=== PATIENT | female | born 1950 | race African-American/Black ===

== ENCOUNTER 2020-10-13 23:18 | Emergency (ER) | payer OTHER ==
[~2020-10-13] VITALS: Ht 167.6 cm; Wt 108.9 kg
[~2020-10-13 23:18] MED LIST: NORCO 5-325 TA1 EACH PO; UNKNOWN BP MED
[2020-10-13 23:22] VITALS: BP 141/90
[2020-10-14 00:02] LABS: URINE BILIRUBIN NEGATIVE (Negative); URINE BLOOD 1+ (Negative); URINE CLARITY CLEAR; URINE COLOR YELLOW; URINE GLUCOSE-RANDOM* NEGATIVE (Negative); URINE KETONES NEGATIVE (Negative); URINE LEUKOCYTES-REFLEX NEGATIVE (Negative); URINE NITRITE-REFLEX NEGATIVE (Negative); URINE PROTEIN (DIPSTICK) 1+ (Negative); URINE SPECIFIC GRAVITY 1.025 (1.005-1.035)
[2020-10-14 00:32] LABS: CASTS None Seen /LPF (None Seen); CRYSTALS None Seen /LPF (None Seen); MUCUS 0-3 Light strn/LPF (None Seen); SQUAMOUS 0-3 Few /LPF (0-3); URINE RBC 3-10 Few /HPF (0-2); URINE WBC-REFLEX 0-5 Rare /HPF (0-5)
--- NOTE | 2020-10-14 11:13 | EKG ---
[place] [address] [email or web address] [place] [address] ELECTROCARDIOGRAM REPORT Name: FELIX WHITTINGTON Room #: [facility]#: [id number] Admission: 10/13/20 Attend Phys: Discharge: 10/14/20 Date of : 50 Report #: [id number] [facility] ED Test Date: 2020-10-14 Test Time: 00:24:43 Pat Name: FELIX WHITTINGTON Department: Room: Gender: F Data Programmer: [facility] : 1950 Requested By: Ale Wayne Order Number: [id number] MD: Lionel Pompa Measurements Intervals [place] Rate: 103 P: 78 [place]: 149 QRS: 35 QRSD: 73 T: 11 QT: 341 QTc: 447 Interpretive Statements Sinus tachycardia Low voltage, precordial leads Baseline wander in lead(s) I,II,aVR Compared to ECG 04/11/2009 18:07:43 Low QRS voltage now present Electronically Signed On 10-14-2020 11:13:05 FOURDRINIER MACHINE TENDER by Lionel Pompa [email or web address] <ELECTRONICALLY SIGNED> By: Lionel Pompa MD, [facility] 10/14/20 1113 0024 0024 Lionel Pompa MD, [facility] /EPI
== END 2020-10-14 00:37 | disposition left against medical advice (07) ==
LOC: ER 23:18
PROVIDERS: Emergency Medicine
DX: R00.0 Tachycardia, unspecified (principal); H93.8X1 Other specified disorders of right ear; R42 Dizziness and giddiness; E11.9 Type 2 diabetes mellitus without complications; I10 Essential (primary) hypertension; E78.00 Pure hypercholesterolemia, unspecified; F41.9 Anxiety disorder, unspecified; Z79.899 Other long term (current) drug therapy; Z88.0 Allergy status to penicillin

== ENCOUNTER 2021-06-06 20:46 | Emergency (ER) | payer OTHER ==
[~2021-06-06] VITALS: Ht 165.1 cm; Wt 104.3 kg
[2021-06-06 21:31] VITALS: BP 150/89
== END 2021-06-06 21:43 | disposition home or self-care (01) ==
LOC: ER 20:46
DX: U07.1 COVID-19 (principal); E11.9 Type 2 diabetes mellitus without complications; I10 Essential (primary) hypertension; F41.9 Anxiety disorder, unspecified; E78.00 Pure hypercholesterolemia, unspecified; Z88.0 Allergy status to penicillin

== ENCOUNTER 2021-07-20 14:22 | Emergency (ER) | payer OTHER ==
[~2021-07-20] VITALS: Ht 167.6 cm; Wt 108.9 kg
[2021-07-20] MEDS ORDERED: SPIRONOLACT/HCT1 TA1 PO (14:33)
[2021-07-20] MEDS ORDERED: LORAZEPAM 0.50.5 MG PO (14:34)
[2021-07-20] MEDS ORDERED: ROSUVASTATIN CA20 MG PO (14:34)
[2021-07-20] MEDS ORDERED: AMBIEN 5 MG TABL5 M1 PO (14:34)
[2021-07-20] MEDS ORDERED: CARVEDILOL6.25 M1 PO (14:35)
[2021-07-20 14:48] LABS: ABSOLUTE NEUTROPHILS 2.9 thou/uL (1.4-8.2); BASOPHILS 1.4 % (0.0-2.0); EOSINOPHILS 0.7 % (0.0-3.0); HEMATOCRIT 37.7 % (37.0-47.0); HEMOGLOBIN 12.2 gm/dL (12.0-15.0); LYMPHOCYTES 39.4 % (24.0-44.0); MCH 27.8 pg (26.0-34.0); MCHC 32.5 g/dL (28.0-37.0); MCV 85.5 fL (80.0-100.0); MONOCYTES 8.7 % (1.0-8.0); PLATELET COUNT 296 thou/uL (150-400); POLYS 49.8 % (36.0-66.0); RDW 16.4 % (10.5-14.5); WBC 5.8 thou/uL (4.0-11.0)
[2021-07-20 14:49] LABS: URINE BILIRUBIN NEGATIVE (Negative); URINE BLOOD NEGATIVE (Negative); URINE CLARITY CLEAR; URINE COLOR YELLOW; URINE GLUCOSE-RANDOM* NEGATIVE (Negative); URINE KETONES NEGATIVE (Negative); URINE LEUKOCYTES-REFLEX NEGATIVE (Negative); URINE NITRITE-REFLEX NEGATIVE (Negative); URINE PROTEIN (DIPSTICK) NEGATIVE (Negative); URINE UROBILINOGEN 0.2 E.U./dl (0.2-1.0)
[2021-07-20 15:05] LABS: CALCIUM 9.7 mg/dL (8.5-10.1); CREATININE 0.8 mg/dL (0.6-1.0); POTASSIUM 3.9 mmol/L (3.5-5.1)
[2021-07-20 15:14] LABS: ALBUMIN 3.7 g/dL (3.4-5.0); TOTAL BILIRUBIN 0.3 mg/dL (0.2-1.0); TOTAL PROTEIN 8.2 g/dL (6.4-8.2)
[2021-07-20] MEDS ORDERED: METFORMIN HCL500 M2 PO (15:34)
[2021-07-20 15:37] VITALS: BP 131/76
--- NOTE | 2021-07-21 15:14 | EKG ---
[address] [address] ELECTROCARDIOGRAM REPORT Name: FELIX WHITTINGTON Room #: [facility]#: [id number] Admission: 07/20/21 Attend Phys: Discharge: 07/20/21 Date of : 50 Report #: [id number] [facility] ED Test Date: 2021-07-20 Test Time: 14:27:19 Pat Name: FELIX WHITTINGTON Department: Room: Gender: F Guide: TRUDI : 1950 Requested By: Kevin Harden Order Number: [id number] MD: Lionel Pompa Measurements Intervals [place] Rate: 100 P: 39 [place]: 154 QRS: 19 QRSD: 120 T: -4 QT: 331 QTc: 427 Interpretive Statements Sinus tachycardia Atrial premature complex Nonspecific intraventricular conduction delay Borderline T abnormalities, inferior leads Compared to ECG 10/14/2020 00:24:43 Atrial premature complex(es) now present Intraventricular conduction delay now present T-wave abnormality now present Electronically Signed On 07-21-2021 15:14:10 CDT by Lionel Pompa [email or web address] <ELECTRONICALLY SIGNED> By: Lionel Pompa MD, FACC 07/21/21 1514 1427 1427 Lionel Pompa MD, [facility] /EPI
== END 2021-07-20 15:45 | disposition home or self-care (01) ==
LOC: ER 14:22
PROVIDERS: Emergency Medicine
DX: K21.9 Gastro-esophageal reflux disease without esophagitis (principal); Z20.822 Contact with and (suspected) exposure to COVID-19; R42 Dizziness and giddiness; E11.9 Type 2 diabetes mellitus without complications; I10 Essential (primary) hypertension; F41.9 Anxiety disorder, unspecified; E78.00 Pure hypercholesterolemia, unspecified; Z79.899 Other long term (current) drug therapy; Z88.0 Allergy status to penicillin

== ENCOUNTER 2021-07-22 22:25 | Emergency (ER) | payer OTHER ==
[~2021-07-22] VITALS: Ht 165.1 cm; Wt 108.9 kg
[~2021-07-22 22:25] MED LIST changes: +AMBIEN 5 MG TABL5 M1 PO; +CARVEDILOL6.25 M1 PO; +LORAZEPAM 0.50.5 MG PO; +METFORMIN HCL500 M2 PO; +ROSUVASTATIN CA20 MG PO; +SPIRONOLACT/HCT1 TA1 PO
[2021-07-22 23:27] LABS: URINE BILIRUBIN NEGATIVE (Negative); URINE BLOOD TRACE (Negative); URINE CLARITY CLEAR; URINE COLOR YELLOW; URINE GLUCOSE-RANDOM* NEGATIVE (Negative); URINE KETONES NEGATIVE (Negative); URINE LEUKOCYTES-REFLEX NEGATIVE (Negative); URINE NITRITE-REFLEX NEGATIVE (Negative); URINE PROTEIN (DIPSTICK) NEGATIVE (Negative)
[2021-07-22 23:51] LABS: ABSOLUTE NEUTROPHILS 2.6 thou/uL (1.4-8.2); BASOPHILS 0.7 % (0.0-2.0); EOSINOPHILS 1.1 % (0.0-3.0); HEMATOCRIT 35.6 % (37.0-47.0); HEMOGLOBIN 11.7 gm/dL (12.0-15.0); LYMPHOCYTES 39.1 % (24.0-44.0); MCHC 32.9 g/dL (28.0-37.0); MONOCYTES 10.2 % (1.0-8.0); PLATELET COUNT 264 thou/uL (150-400); POLYS 48.9 % (36.0-66.0); RBC 4.19 mil/uL (4.20-5.00); RDW 16.4 % (10.5-14.5); WBC 5.4 thou/uL (4.0-11.0)
[2021-07-22 23:57] LABS: CALCIUM 9.3 mg/dL (8.5-10.1); POTASSIUM 3.7 mmol/L (3.5-5.1)
[2021-07-23 00:06] LABS: ALBUMIN 3.4 g/dL (3.4-5.0); TOTAL BILIRUBIN 0.3 mg/dL (0.2-1.0); TOTAL PROTEIN 7.5 g/dL (6.4-8.2)
[2021-07-23 00:35] VITALS: BP 139/66
[2021-07-23] MEDS ORDERED: ATIVAN0.5 M1 PO (00:36)
--- NOTE | 2021-07-23 11:54 | EKG ---
[address] [place] [address] ELECTROCARDIOGRAM REPORT Name: FELIX WHITTINGTON Room #: [facility]#: [id number] Admission: 07/22/21 Attend Phys: Discharge: 07/23/21 Date of : 50 Report #: [id number] [facility] ED Test Date: 2021-07-23 Test Time: 00:17:23 Pat Name: FELIX WHITTINGTON Department: Room: Gender: F Press Operator Helper: : 1950 Requested By: Stephen Lam Order Number: [id number] MD: Lionel Pompa Measurements Intervals [place] Rate: 90 P: 74 [place]: 139 QRS: 24 QRSD: 83 T: -3 QT: 359 QTc: 440 Interpretive Statements Sinus arrhythmia Compared to ECG 07/20/2021 14:27:19 Sinus tachycardia no longer present Atrial premature complex(es) no longer present Intraventricular conduction delay no longer present T-wave abnormality no longer present Electronically Signed On 07-23-2021 11:54:31 CDT by Lionel Pompa [email or web address] <ELECTRONICALLY SIGNED> By: Lionel Pompa MD, [facility] 07/23/21 1154 0017 0017 Lionel Pompa MD, FAC /EPI
== END 2021-07-23 00:46 | disposition home or self-care (01) ==
LOC: ER 22:25
PROVIDERS: Emergency Medicine
DX: R00.2 Palpitations (principal); F41.9 Anxiety disorder, unspecified; R06.00 Dyspnea, unspecified; E78.00 Pure hypercholesterolemia, unspecified; E11.9 Type 2 diabetes mellitus without complications; I10 Essential (primary) hypertension; Z79.84 Long term (current) use of oral hypoglycemic drugs; Z79.891 Long term (current) use of opiate analgesic; Z79.899 Other long term (current) drug therapy; Z88.0 Allergy status to penicillin; Z86.16 Personal history of COVID-19

== ENCOUNTER 2021-07-27 15:08 | Emergency (ER) | payer OTHER ==
[~2021-07-27] VITALS: Ht 165.1 cm; Wt 108.9 kg
[~2021-07-27 15:08] MED LIST changes: +ATIVAN0.5 M1 PO
[2021-07-27 15:36] LABS: ABSOLUTE NEUTROPHILS 3.2 thou/uL (1.4-8.2); BASOPHILS 0.6 % (0.0-2.0); HEMATOCRIT 38.2 % (37.0-47.0); HEMOGLOBIN 12.2 gm/dL (12.0-15.0); LYMPHOCYTES 34.7 % (24.0-44.0); MCH 27.5 pg (26.0-34.0); MONOCYTES 8.4 % (1.0-8.0); PLATELET COUNT 268 thou/uL (150-400); POLYS 55.3 % (36.0-66.0); RBC 4.44 mil/uL (4.20-5.00); RDW 16.4 % (10.5-14.5); WBC 5.8 thou/uL (4.0-11.0)
[2021-07-27 15:44] LABS: CALCIUM 9.6 mg/dL (8.5-10.1); CREATININE 0.9 mg/dL (0.6-1.0); POTASSIUM 3.5 mmol/L (3.5-5.1)
[2021-07-27 15:57] LABS: ALBUMIN 3.6 g/dL (3.4-5.0); TOTAL BILIRUBIN 0.4 mg/dL (0.2-1.0)
[2021-07-27 17:50] VITALS: BP 174/93
--- NOTE | 2021-07-28 07:28 | EKG ---
[address] [place] [address] ELECTROCARDIOGRAM REPORT Name: FELIX WHITTINGTON Room #: [facility]#: [id number] Admission: 07/27/21 Attend Phys: Discharge: 07/27/21 Date of : 50 Report #: [id number] [facility] ED Test Date: 2021-07-27 Test Time: 15:22:00 Pat Name: FELIX WHITTINGTON Department: Room: Gender: F Government Affairs Director: JONATHAN : 1950 Requested By: Glynn Castillo Order Number: [id number] MD: Lionel Pompa Measurements Intervals [place] Rate: 93 P: 72 [place]: 133 QRS: 29 QRSD: 80 T: -10 QT: 352 QTc: 438 Interpretive Statements Sinus rhythm Borderline T abnormalities, inferior leads Compared to ECG 07/23/2021 00:17:23 T-wave abnormality now present Sinus arrhythmia no longer present Electronically Signed On 07-28-2021 7:27:49 CDT by Lionel Pompa [email or web address] <ELECTRONICALLY SIGNED> By: Lionel Pompa MD, [facility] 07/28/21 0727 21 21 Lionel Pompa MD, FACC /EPI
== END 2021-07-27 17:50 | disposition home or self-care (01) ==
LOC: ER 15:08
PROVIDERS: Emergency Medicine
DX: F41.9 Anxiety disorder, unspecified (principal); R00.2 Palpitations; E78.00 Pure hypercholesterolemia, unspecified; I10 Essential (primary) hypertension; E11.9 Type 2 diabetes mellitus without complications; Z79.891 Long term (current) use of opiate analgesic; Z79.84 Long term (current) use of oral hypoglycemic drugs; Z79.1 Long term (current) use of non-steroidal anti-inflammatories (NSAID); Z79.899 Other long term (current) drug therapy; Z88.0 Allergy status to penicillin

== ENCOUNTER 2021-08-01 16:47 | Emergency (ER) | payer OTHER ==
[~2021-08-01] VITALS: Ht 165.1 cm; Wt 112.0 kg
[2021-08-01 17:59] LABS: HEMATOCRIT 37.8 % (37.0-47.0); HEMOGLOBIN 12.3 gm/dL (12.0-15.0); MCH 27.8 pg (26.0-34.0); MCHC 32.4 g/dL (28.0-37.0); MCV 85.7 fL (80.0-100.0); RBC 4.41 mil/uL (4.20-5.00); RDW 16.5 % (10.5-14.5); WBC 5.7 thou/uL (4.0-11.0)
[2021-08-01 18:09] LABS: CALCIUM 8.9 mg/dL (8.5-10.1); CREATININE 0.9 mg/dL (0.6-1.0); POTASSIUM 3.7 mmol/L (3.5-5.1)
[2021-08-01 18:21] LABS: ALBUMIN 3.4 g/dL (3.4-5.0); TOTAL BILIRUBIN 0.3 mg/dL (0.2-1.0); TOTAL PROTEIN 7.7 g/dL (6.4-8.2)
[2021-08-01 18:32] LABS: URINE BILIRUBIN NEGATIVE (Negative); URINE BLOOD NEGATIVE (Negative); URINE CLARITY CLEAR; URINE COLOR YELLOW; URINE GLUCOSE-RANDOM* NEGATIVE (Negative); URINE KETONES NEGATIVE (Negative); URINE LEUKOCYTES-REFLEX NEGATIVE (Negative); URINE NITRITE-REFLEX NEGATIVE (Negative); URINE PROTEIN (DIPSTICK) NEGATIVE (Negative); URINE SPECIFIC GRAVITY 1.015 (1.005-1.035); URINE UROBILINOGEN 0.2 E.U./dl (0.2-1.0)
[2021-08-01 20:15] VITALS: BP 136/76
--- NOTE | 2021-08-02 11:24 | EKG ---
[place] [address] [facility] [place] [address] ELECTROCARDIOGRAM REPORT Name: FELIX WHITTINGTON Room #: [facility]#: [id number] Admission: 08/01/21 Attend Phys: Discharge: 08/01/21 Date of : [birth year] Report #: [id number] [facility] ED Test Date: 2021-08-01 Test Time: 17:09:36 Pat Name: FELIX WHITTINGTON Department: Room: Gender: F Computer Service Technician: : 1950 Requested By: Brooke Escamilla Order Number: [id number] MD: Osbaldo Brown Measurements Intervals [place] Rate: 98 P: 55 [place]: 141 QRS: 21 QRSD: 79 T: 9 QT: 346 QTc: 442 Interpretive Statements Sinus rhythm Poor R wave progression Compared to ECG 07/27/2021 15:22:00 T-wave abnormality no longer present Electronically Signed On 08-02-2021 11:24:25 CDT by Osbaldo Brown [email or web address] <ELECTRONICALLY SIGNED> By: Osbaldo Brown MD, [facility] 08/02/21 1124 1709 1709 Osbaldo Brown MD, FACC /EPI
== END 2021-08-01 20:38 | disposition home or self-care (01) ==
LOC: ER 16:47
PROVIDERS: Nurse Practitioner Family
DX: R06.00 Dyspnea, unspecified (principal); Z20.822 Contact with and (suspected) exposure to COVID-19; E11.65 Type 2 diabetes mellitus with hyperglycemia; I10 Essential (primary) hypertension; E78.00 Pure hypercholesterolemia, unspecified; F41.9 Anxiety disorder, unspecified; Z79.899 Other long term (current) drug therapy; Z88.0 Allergy status to penicillin

== ENCOUNTER 2021-08-22 19:55 | Emergency (ER) | payer OTHER ==
[~2021-08-22] VITALS: Ht 165.1 cm; Wt 113.0 kg
[2021-08-22 20:27] LABS: WBC 5.7 thou/uL (4.0-11.0)
[2021-08-22 20:29] LABS: ABSOLUTE NEUTROPHILS 2.8 thou/uL (1.4-8.2); BASOPHILS 0.6 % (0.0-2.0); EOSINOPHILS 1.7 % (0.0-3.0); HEMATOCRIT 37.7 % (37.0-47.0); HEMOGLOBIN 12.1 gm/dL (12.0-15.0); LYMPHOCYTES 40.1 % (24.0-44.0); MCH 27.6 pg (26.0-34.0); MCV 86.4 fL (80.0-100.0); MONOCYTES 9.5 % (1.0-8.0); PLATELET COUNT 257 thou/uL (150-400); POLYS 48.1 % (36.0-66.0); RBC 4.36 mil/uL (4.20-5.00); RDW 16.2 % (10.5-14.5)
[2021-08-22 20:40] LABS: CALCIUM 8.9 mg/dL (8.5-10.1); POTASSIUM 3.9 mmol/L (3.5-5.1)
[2021-08-22 20:50] LABS: ALBUMIN 3.5 g/dL (3.4-5.0); TOTAL BILIRUBIN 0.2 mg/dL (0.2-1.0); TOTAL PROTEIN 7.9 g/dL (6.4-8.2)
[2021-08-22 21:13] LABS: URINE BILIRUBIN NEGATIVE (Negative); URINE BLOOD NEGATIVE (Negative); URINE CLARITY CLEAR; URINE COLOR YELLOW; URINE GLUCOSE-RANDOM* NEGATIVE (Negative); URINE KETONES NEGATIVE (Negative); URINE LEUKOCYTES-REFLEX NEGATIVE (Negative); URINE NITRITE-REFLEX NEGATIVE (Negative); URINE PROTEIN (DIPSTICK) NEGATIVE (Negative); URINE UROBILINOGEN 0.2 E.U./dl (0.2-1.0)
[2021-08-22 23:21] VITALS: BP 159/81
--- NOTE | 2021-08-23 09:59 | EKG ---
[address] [place] [address] ELECTROCARDIOGRAM REPORT Name: FELIX WHITTINGTON Room #: [facility]#: [id number] Admission: 08/22/21 Attend Phys: Discharge: 08/22/21 Date of : [birth year] Report #: [id number] [facility] ED Test Date: 2021-08-22 Test Time: 20:08:21 Pat Name: FELIX WHITTINGTON Department: Room: Gender: F Hands Parter: STEPHANIE : 1950 Requested By: Glen Allred Order Number: [id number] MD: El Lomas Measurements Intervals [place] Rate: 111 P: 106 [place]: 141 QRS: 30 QRSD: 127 T: -13 QT: 402 QTc: 547 Interpretive Statements Sinus tachycardia Nonspecific T wave abnormality Compared to ECG 08/01/2021 17:09:36 Sinus rhythm no longer present Poor R-wave progression no longer present Electronically Signed On 08-23-2021 9:59:29 CT TECHNOLOGIST by El Lomas [email or web address] <ELECTRONICALLY SIGNED> By: El Lomas MD 08/23/21 0959 07 07 El Lomas MD /YAN
== END 2021-08-22 23:29 | disposition home or self-care (01) ==
LOC: ER 19:55
PROVIDERS: Emergency Medicine
DX: R06.00 Dyspnea, unspecified (principal); Z20.822 Contact with and (suspected) exposure to COVID-19; E11.9 Type 2 diabetes mellitus without complications; I10 Essential (primary) hypertension; E78.00 Pure hypercholesterolemia, unspecified; F41.9 Anxiety disorder, unspecified; Z79.84 Long term (current) use of oral hypoglycemic drugs; Z79.891 Long term (current) use of opiate analgesic; Z79.899 Other long term (current) drug therapy; Z88.0 Allergy status to penicillin